=== PATIENT | female | born 1995 | race African-American/Black ===

== ENCOUNTER 2021-07-11 15:35 | Emergency (ER) | payer SELFPAY ==
[~2021-07-11 15:35] MED LIST: Lactated Ringer's 1,000 ML BAG ONE
[2021-07-11] MEDS ORDERED: Lorazepam 2 MG/ML VIAL ONE (15:58)
[2021-07-11 17:11] LABS: #Basophils 0.1 thou/uL (0.0-0.2); #Lymphocytes 1.2 thou/uL (1.20-3.40); #Neutrophils 8.1 thou/uL (1.40-6.50); %Basophils 0.7 % (0.0-1.0); %Eosinophils 0.3 % (0.0-10.0); %Lymphocytes 11.3 % (21.0-51.0); %Monocytes 9.6 % (0.0-10.0); %Neutrophils 78.2 % (42.0-75.0); Hemoglobin 11.7 g/dL (12.0-16.0); Mean Corpuscular HGB CONC 31.4 g/dL (32.0-36.0); Mean Corpuscular Hemoglobin 27.9 pg (27.0-31.0); Mean Corpuscular Volume 88.9 fL (78.0-98.0); Mean Platelet Volume 7.2 fL (7.4-10.4); Platelet Count 411 thou/uL (130-400); Red Blood Cell (RBC) Count 4.18 mill/uL (4.20-5.40); White Blood Cell (WBC) Count 10.3 thou/uL (4.8-10.8)
[2021-07-11 17:18] LABS: BHCG - Serum Negative (NEGATIVE)
[2021-07-11 17:19] LABS: Pregs Control Background? CLEAR/WHITE (CLR/WHITE); Pregs Control Bar Appear? YES (CONTROL BAR)
[2021-07-11 17:30] LABS: ALT (SGPT) 15 U/L (8-55); AST (SGOT) 18 U/L (5-34); Alkaline Phosphatase 45 U/L (40-110); Anion Gap 14 mmol/L (10-20); BUN (Urea Nitrogen) 13 mg/dL (7.0-18.7); Bilirubin, Total 0.2 mg/dL (0.2-1.2); Calc. Creatinine Clearance 0 mL/min (70-130); Calcium 9.4 mg/dL (7.8-10.44); Carbon Dioxide 21 mmol/L (22-29); Chloride 108 mmol/L (98-107); Globulin 3.9 g/dL (2.4-3.5); Glucose 102 mg/dL (70-105); Potassium 4.4 mmol/L (3.5-5.1); Protein, Total 7.9 g/dL (6.0-8.3); Sodium 139 mmol/L (136-145)
[2021-07-11 17:31] LABS: Acetaminophen Less than 6.0 mcg/mL (10.0-30.0); Alcohol Less than 10 mg/dL (Less than 10); CK (CPK) 215 U/L (29-168); Salicylate Less than 8.0 mg/dL (15.0-30.0)
[2021-07-11 17:55] LABS: Cocaine Metabolite Screen Not Detected (NotDetected); Methamphetamine Not Detected (NotDetected); Opiate Screen Not Detected (NotDetected); Phencyclidine (PCP) Not Detected (NotDetected); THC/Cannabinoid Screen Detected (NotDetected)
[2021-07-11 17:56] LABS: Amphetamine Not Detected (NotDetected); Barbiturates Screen Not Detected (NotDetected); Benzodiazepine Screen Not Detected (NotDetected); Medtox Control Line Valid? VALID (VALID); Methadone Not Detected (NotDetected); Oxycodone Screen Not Detected (NotDetected); Tricyclic Screen Not Detected (NotDetected)
[2021-07-11] MEDS ORDERED: Ondansetron ODT 4 MG TAB ONE (19:26)
== END 2021-07-11 20:04 | disposition home or self-care (01) ==
LOC: MADERS 15:35
DX: R00.0 Tachycardia, unspecified (principal); F12.90 Cannabis use, unspecified, uncomplicated; R11.0 Nausea
CPT/HCPCS: 36415; 80053; 80306; 80307; 82550; 84443; 84703; 85025; 93005; 96374; J2060; J7120; Q0162